=== PATIENT | female | born 1935 | race Caucasian/White ===

== ENCOUNTER → 2017-11-08 | Outpatient (CLI) | payer MEDICARE ==
[2017-11-08 12:49] LABS: ALBUMIN 3.8 g/dL (3.4-5.0); CHLORIDE 100 mmol/L (98-107)
[2017-11-08 12:55] LABS: ALANINE AMINOTRANSFERASE 23 U/L (12-78); ALKALINE PHOSPHATASE 74 U/L (45-117); ANION GAP 7 mmol/L (5-15); BILIRUBIN,TOTAL 0.8 mg/dL (0.2-1.0); CALCIUM 9.2 mg/dL (8.5-10.1); CHOL/HDL RATIO 2.9; CHOLESTEROL, TOTAL 171 mg/dL (140-239); CREATININE 0.73 mg/dL (0.55-1.02); HDL CHOL % 35 % (28-40); HDL CHOLESTEROL (DIRECT) 59 mg/dL (40-60); LDL CHOLESTEROL,CALCULATED 88 mg/dL (54-169); LDL/HDL RATIO 1.5 (0.5-3.0); TOTAL PROTEIN 7.4 g/dL (6.4-8.2); TRIGLYCERIDES 118 mg/dL (50-200); VLDL CHOLESTEROL 24 mg/dL (0-25)
[2017-11-08 13:08] LABS: HEMOGLOBIN A1C 6.4 % (4.2-6.3)
== END | disposition home or self-care (01) ==
LOC: CFH 10:07
PROVIDERS: ATTEND Nurse Practitioner Primary Care
DX: Z12.11 Encounter for screening for malignant neoplasm of colon (principal); Z12.4 Encounter for screening for malignant neoplasm of cervix; Z12.31 Encounter for screening mammogram for malignant neoplasm of breast; Z13.220 Encounter for screening for lipoid disorders; R53.83 Other fatigue; K21.9 Gastro-esophageal reflux disease without esophagitis; F06.31 Mood disorder due to known physiological condition with depressive features; E78.2 Mixed hyperlipidemia; I49.9 Cardiac arrhythmia, unspecified; R42 Dizziness and giddiness; F10.20 Alcohol dependence, uncomplicated; M54.40 Lumbago with sciatica, unspecified side; M85.9 Disorder of bone density and structure, unspecified; R00.2 Palpitations; R54 Age-related physical debility; R73.01 Impaired fasting glucose; J00 Acute nasopharyngitis [common cold]; H61.23 Impacted cerumen, bilateral; G45.9 Transient cerebral ischemic attack, unspecified; W19.XXXD Unspecified fall, subsequent encounter
CPT/HCPCS: 36415; 80053; 80061; 83036

== ENCOUNTER 2020-12-17 12:46 | Emergency (ER) | payer MEDICARE ==
[~2020-12-17] VITALS: Ht 157.5 cm; Wt 77.0 kg
[~2020-12-17 12:46] MED LIST: AMOX500T PO; ASCO500C2 PO; BACL20TA PO; CLOP75TA52 PO; CLOT45CR5 VG; DONE5TAB14 PO; HYDR-3237 PO; L.AC1CAP6 PO; LANS15CA5 PO; MELA5TAB14 PO; METF500T17 PO; MULT-449 PO; MULT-516 PO; POLY17PO5 PO; PREG25CA PO; SIMV80TA18 PO; UBID100C41 PO; [UNRECOGNIZED DRUG - OTHER] PO; calcium PO; metoprolol PO; venlafaxine PO
--- NOTE | 2020-12-17 13:37 | NUR ---
PT C/O OF PAIN AND SWELLING IN LEFT LEG. NOTED TO BE SWOLLEN, TENDER, AND WARM. CAP REFILL 4 SECONDS IN LEFT FOOT. CMS INTACT. PTS DAUGHTER STATED THIS STARTED LAST WEEKEND.
[2020-12-17] MEDS ORDERED: HYDROcodone/APAP 5/325 TABLET ONE (13:59)
[2020-12-17] MEDS ORDERED: HYDROcodone/APAP 5/325 TABLET PO ONE (14:00)
[2020-12-17 14:04] LABS: BASOPHILS % (AUTO) 1 % (0-1); EOSINOPHILS % (AUTO) 2 % (1-7); LYMPHOCYTES % (AUTO) 30 % (22-44); MEAN CORPUSCULAR HEMOGLOBIN 29.1 pg (27.0-34.8); MEAN CORPUSCULAR HGB CONC 32.8 g/dL (32.4-35.8); MEAN PLATELET VOLUME 8.5 fL (7.4-10.4); MONOCYTES % (AUTO) 9 % (2-9); NEUTROPHILS % (AUTO) 58 % (42-75); PLATELET COUNT 252 x10^3/uL (130-400); RED BLOOD COUNT 4.76 x10^6/uL (3.82-5.3); RED CELL DISTRIBUTION WIDTH 15.2 % (9.6-15.2)
[2020-12-17 14:14] LABS: ALBUMIN 3.1 g/dL (3.4-5.0); ANION GAP 4 mmol/L (5-15); CALCIUM 8.9 mg/dL (8.5-10.1); CHLORIDE 109 mmol/L (98-107); CREATININE 0.75 mg/dL (0.55-1.02)
[2020-12-17 14:16] LABS: INTERNATIONAL NORMALIZED RATIO 0.96 (0.93-1.1); PROTHROMBIN TIME 10.3 Seconds (9.6-11.5)
[2020-12-17 14:18] LABS: MD NO
[2020-12-17] MEDS ORDERED: APIXABAN 5 MG TABLET PO ONE (15:00)
--- NOTE | 2020-12-17 15:04 | NUR ---
PT LYING IN BED TAKLING TO HER DAUGHTER. NO COMPLAINTS OF PAIN.
[2020-12-17] MEDS ORDERED: APIXABAN 5 MG TABLET ONE (15:17)
[2020-12-17 15:35] VITALS: BP 113/41
== END 2020-12-17 15:39 | disposition home or self-care (01) ==
LOC: ED 15:25
DX: I82.412 Acute embolism and thrombosis of left femoral vein (principal); I10 Essential (primary) hypertension; E11.9 Type 2 diabetes mellitus without complications; E78.00 Pure hypercholesterolemia, unspecified
CPT/HCPCS: 36415; 80048; 82040; 85025; 85610; 85730; 99284

== ENCOUNTER 2020-12-29 10:55 | Emergency (ER) | payer MEDICARE ==
[~2020-12-29] VITALS: Ht 157.5 cm; Wt 76.0 kg
[2020-12-29] MEDS ORDERED: ACETAMINOPHEN 325 MG TABLET ONE (11:28)
[2020-12-29] MEDS ORDERED: ACETAMINOPHEN 325 MG TABLET PO ONE (11:30)
--- NOTE | 2020-12-29 11:30 | NUR ---
PT HAS CO LEFT LEG SWELLING AND PAIN. PT HAS DVT. ON ELIQUIS. [facility] AT [facility] AND WAS SENT FOR RECHECK. PT LAUREENS CP OR SOB.
[2020-12-29 11:47] LABS: BASOPHILS % (AUTO) 1 % (0-1); EOSINOPHILS % (AUTO) 2 % (1-7); LYMPHOCYTES % (AUTO) 27 % (22-44); MEAN CORPUSCULAR HEMOGLOBIN 29.3 pg (27.0-34.8); MEAN CORPUSCULAR HGB CONC 33.1 g/dL (32.4-35.8); MEAN PLATELET VOLUME 8.5 fL (7.4-10.4); MONOCYTES % (AUTO) 9 % (2-9); NEUTROPHILS % (AUTO) 61 % (42-75); PLATELET COUNT 270 x10^3/uL (130-400); RED BLOOD COUNT 4.77 x10^6/uL (3.82-5.3); RED CELL DISTRIBUTION WIDTH 14.9 % (9.6-15.2)
[2020-12-29 11:51] LABS: MD NO
[2020-12-29 11:59] LABS: CALCIUM 8.6 mg/dL (8.5-10.1); CREATININE 0.72 mg/dL (0.55-1.02)
[2020-12-29 12:04] LABS: ANION GAP 8 mmol/L (5-15); CHLORIDE 108 mmol/L (98-107)
--- NOTE | 2020-12-29 12:58 | NUR ---
US COMPLETE. PT RESTING
[2020-12-29 13:02] VITALS: BP 121/49
--- NOTE | 2020-12-29 13:40 | NUR ---
ASSISTED PT TO BEDPAN
--- NOTE | 2020-12-29 14:06 | NUR ---
Patient/Caregiver given discharge instructions and they have confirmed that they understand the instructions. Patient assisted w wheelchair to dc
== END 2020-12-29 14:07 | disposition home or self-care (01) ==
LOC: ED 13:51
DX: I82.402 Acute embolism and thrombosis of unspecified deep veins of left lower extremity (principal); I10 Essential (primary) hypertension; E11.9 Type 2 diabetes mellitus without complications; Z86.73 Personal history of transient ischemic attack (TIA), and cerebral infarction without residual deficits; Z86.718 Personal history of other venous thrombosis and embolism
CPT/HCPCS: 36415; 80048; 82040; 85025; 99284